=== PATIENT | female | born 1970 | race Caucasian/White ===

== ENCOUNTER 2018-10-26 04:58 | Emergency (ER) | payer MEDICAID ==
[~2018-10-26] VITALS: Ht 160 cm; Wt 93.3 kg
[2018-10-26 05:02] VITALS: BP 166/82; PULSE 80; RESP 20; Ht 160 cm; Wt 93.3 kg
[2018-10-26] MEDS ORDERED: ACETAMINOPHEN 325 MG TAB PO STA (05:35)
[2018-10-26] MEDS ORDERED: IBUP-1542 PO (07:03)
--- NOTE | 2018-10-26 07:04 | ERD ---
ER Documentation Chief Complaint Chief Complaint PELVIC PAIN RADIATING TO BACK X'S 2 HOURS HPI 48 year old female presents complaining of Pelvic pain and Vaginal bleeding x few hours. Patient reports the pain feels like "inflammation." She rates it as 5/10 intensity and is located at her RLQ. She states she had an incidence si milar to this 5 years ago that lasted 3/4 days and was self-limiting. She denies any fevers, SOB, and states she does not smoke. She does not take any medications for this and does not have an OBGYN currently. ROS All systems reviewed and are negative except as per history of present illness. Medications Home Meds Active Scripts Ibuprofen* (Motrin*) 600 Mg Tab, 600 MG PO Q6H PRN for PAIN AND OR ELEVATED TEMP, #30 TAB Prov:HÉCTOR ROSE PA-C 10/26/18 Allergies Allergies: Coded Allergies: No Known Drug Allergies (Verified Allergy, 02/10/11) PMhx/Soc History of Surgery: No Anesthesia Reaction: No Hx Neurological Disorder: No Hx Respiratory Disorders: No Hx Cardiac Disorders: No Hx Psychiatric Problems: No Hx Miscellaneous Medical Probl: Yes (Cervical Radiculopathy) Hx Alcohol Use: No Hx Substance Use: No Hx Tobacco Use: No Smoking Status: Never smoker FmHx Family History: No diabetes Physical Exam Vitals Vital Signs Date Temp Pulse Resp B/P (MAP) Pulse Ox O2 O2 Flow FiO2 Time Delivery Rate 10/26/18 98.7 80 20 166/82 99 05:02 (110) Physical Exam Const: No acute distress Head: Atraumatic Eyes: Normal Conjunctiva, PERRLA ENT: Normal External Ears, Nose and Mouth. Neck: Full range of motion. No meningismus. Resp: Clear to auscultation bilaterally Cardio: Regular rate and rhythm, no murmurs Abd: Soft, tenderness to the suprapubic region, non distended. Normal bowel sounds, no rebound tenderness, no guarding Skin: No petechiae or rashes Back: Tenderness to the Right lower back Ext: No cyanosis, or edema Neur: Awake and alert Psych: Normal Mood and Affect Result Diagram: 10/26/18 0545 10/26/18 0545 Results 24 hrs Laboratory Tests Test 10/26/18 05:45 10/26/18 05:47 White Blood Count 5.4 10^3/ul Red Blood Count 3.67 10^6/ul Hemoglobin 11.1 g/dl Hematocrit 32.5 % Mean Corpuscular Volume 88.6 fl Mean Corpuscular Hemoglobin 30.2 pg Mean Corpuscular Hemoglobin Concent 34.2 g/dl Red Cell Distribution Width 13.3 % Platelet Count 211 10^3/UL Mean Platelet Volume 10.6 fl Immature Granulocytes % 0.200 % Neutrophils % 60.9 % Lymphocytes % 28.7 % Monocytes % 6.5 % Eosinophils % 3.0 % Basophils % 0.7 % Nucleated Red Blood Cells % 0.0 /100WBC Immature Granulocytes # 0.010 10^3/ul Neutrophils # 3.3 10^3/ul Lymphocytes # 1.6 10^3/ul Monocytes # 0.4 10^3/ul Eosinophils # 0.2 10^3/ul Basophils # 0.0 10^3/ul Nucleated Red Blood Cells # 0.0 10^3/ul Urine Color RED Urine Clarity CLOUDY Urine pH 6.0 Urine Specific Enola 1.017 Urine Ketones NEGATIVE mg/dL Urine Nitrite NEGATIVE mg/dL Urine Bilirubin NEGATIVE mg/dL Urine Urobilinogen NEGATIVE mg/dL Urine Leukocyte Esterase NEGATIVE Carolann/ul Urine Microscopic RBC > 182 /HPF Urine Microscopic WBC 48 /HPF Urine Bacteria FEW /HPF Urine Mucus FEW /HPF Urine Hemoglobin 3+ mg/dL Urine Glucose NEGATIVE mg/dL Urine Total Protein 2+ mg/dl Sodium Level 141 mmol/L Potassium Level 4.0 mmol/L Chloride Level 106 mmol/L Carbon Dioxide Level 27 mmol/L Anion Gap 8 Blood Urea Nitrogen 13 mg/dl Creatinine 0.49 mg/dl Est Glomerular Filtrat Rate mL/min > 60 mL/min Glucose Level 124 mg/dl Calcium Level 8.9 mg/dl POC Beta HCG, Qualitative NEGATIVE Current Medications Medications Dose Sig/Arya Start Time Status Last (Trade) Ordered Route PRN Stop Time Admin Dose Reason Admin 650 mg ONCE STAT 10/26/18 DC 10/26/18 Acetaminophen PO 05:35 10/26/18 06:03 (Tylenol 05:36 Tab) Procedures/MDM ED COURSE: The patient was stable throughout ED course. I kept the patient informed of laboratory and diagnostic imaging results throughout the ED course. DIAGNOSTIC IMAGING: Read by radiologist. PROCEDURE: US Pelvis. CLINICAL INDICATION: Pelvic pain TECHNIQUE: Multiple sonographic images of the pelvis were obtained utilizing transabdominal technique. The images were reviewed on a PACS workstation. COMPARISON: None. FINDINGS: The urinary bladder is decompressed and not clearly visible. The uterus measures 7.5 x 4.7 x 6.5 cm and is suboptimally visualized due to the empty bladder. Endometrial contours are not clearly visualized. No uterine lesions otherwise demonstrated. Left and right ovaries are not seen. No adnexal lesions identified. No evidence of pelvic free fluid. IMPRESSION: 1. Uterus suboptimally visualized, otherwise unremarkable. 2. Ovaries not seen. 3. No pelvic free fluid. RPTAT: [facility] Physician Bernabe Date Time Electronically viewed and signed by Physician Bernabe on 10/26/2018 06:22 PROCEDURES: none MEDICATIONS GIVEN: tylenol Patient tolerated medication well with no adverse reactions. Patient reported improvement in pain. MEDICAL DECISION MAKING: Patient is a 48 year old female that presents to the ED for pelvic pain and vaginal bleeding x 1 day. Patient is in no acute distress. Physical exam showed tenderness to the suprapubic region of her abd but not guarding with a soft abd. U/S was unremarkable. Labs were unremarkable. At this time, I think the patient is suffering from dysfunctional uterine bleeding. I have low suspicion fo ovarion torsion, , ectopic , molar , spontaneous . Vital signs were reviewed. Patient is afebrile. Patient was not hypoxic. Patient was hemodynamically stable. Patient was told to follow up with primary care and OBGYN for further care and management. PRESCRIPTION: motrin DISCHARGE: At this time, patient is stable for discharge and outpatient management. I have instructed the patient to follow-up with his/her primary care physician in 1-2 days. I have discussed with the patient the possibility of needing to see a specialist for further workup and imaging studies if symptoms persist. I have instructed the patient to promptly return to the ER for any new or worsening symptoms including increased pain, fever, nausea, vomiting, weakness or LOC. The patient expressed understanding of and agreement with this plan. All questions were answered. Home care instructions were provided. Disclaimer: Inadvertent spelling and grammatical errors are likely due to EHR/dictation software use and do not reflect on the overall quality of patient care. Also, please note that the electronic time recorded on this note does not necessarily reflect the actual time of the patient encounter. Departure Diagnosis: Primary Impression: Acute pain in female pelvis Additional Impression: Dysfunctional uterine bleeding Condition: Fair Patient Instructions: Dysfunctional Uterine Bleeding Referrals: [facility] YOU HAVE RECEIVED A MEDICAL SCREENING EXAM AND THE RESULTS INDICATE THAT YOU DO NOT HAVE A CONDITION THAT REQUIRES URGENT TREATMENT IN THE EMERGENCY DEPARTMENT. FURTHER EVALUATION AND TREATMENT OF YOUR CONDITION CAN WAIT UNTIL YOU ARE SEEN IN YOUR DOCTORS OFFICE WITHIN THE NEXT 1-2 DAYS. IT IS YOUR RESPONSIBILITY TO MAKE AN APPOINTMENT FOR FOLOW-UP CARE. IF YOU HAVE A PRIMARY DOCTOR --you should call your primary doctor and schedule an appointment IF YOU DO NOT HAVE A PRIMARY DOCTOR YOU CAN CALL OUR PHYSICIAN REFERRAL HOTLINE AT IF YOU CAN NOT AFFORD TO SEE A PHYSICIAN YOU CAN CHOSE FROM THE FOLLOWING [facility] [address] [facility] [address] [facility]. [facility] [address] [facility] [address] [facility] [address] [facility]. [facility]. [address] [facility]. [facility] YOU HAVE RECEIVED A MEDICAL SCREENING EXAM AND THE RESULTS INDICATE THAT YOU DO NOT HAVE A CONDITION THAT REQUIRES URGENT TREATMENT IN THE EMERGENCY DEPARTMENT. FURTHER EVALUATION AND TREATMENT OF YOUR CONDITION CAN WAIT UNTIL YOU ARE SEEN IN YOUR DOCTORS OFFICE WITHIN THE NEXT 1-2 DAYS. IT IS YOUR RESPONSIBILITY TO MAKE AN APPOINTMENT FOR FOLOW-UP CARE. IF YOU HAVE A PRIMARY DOCTOR --you should call your primary doctor and schedule and appointment IF YOU DO NOT HAVE A PRIMARY DOCTOR YOU CAN CALL OUR PHYSICIAN REFERRAL HOTLINE AT . IF YOU CAN NOT AFFORD TO SEE A PHYSICIAN YOU CAN CHOSE FROM THE FOLLOWING [facility] INSTITUTIONS: [facility] [address] [place] [address] [facility] [address] [place] [address] [facility] + [facility] [address] [place] [address] Additional Instructions: Call your primary care doctor and OBGYN TOMORROW for an appointment during the next 1-2 days.See the doctor sooner or return here if your condition worsens before your appointment time. HÉCTOR ROSE PA-C Oct 26, 2018 07:04
== END 2018-10-26 07:13 | disposition home or self-care (01) ==
LOC: FTE 04:58
DX: N93.8 Other specified abnormal uterine and vaginal bleeding (principal)
CPT/HCPCS: 36415; 76856; 80048; 81001; 81025; 85025; Z7502; Z7610